=== PATIENT | female | born 2000 | race Two or more races ===

== ENCOUNTER 2022-03-19 14:50 | Outpatient (CLI) | payer OTHER | END 2022-03-19 16:08 | disposition home or self-care (01) | LOC: PRENATAL 14:50 | PROVIDERS: ATTEND Obstetrics & Gynecology Maternal & Fetal Medicine | DX: O35.0XX0 Maternal care for (suspected) central nervous system malformation in fetus, not applicable or unspecified (principal); O35.3XX0 Maternal care for (suspected) damage to fetus from viral disease in mother, not applicable or unspecified; Z3A.22 22 weeks gestation of pregnancy ==

== ENCOUNTER 2022-05-30 10:12 | Outpatient (CLI) | payer OTHER | END 2022-05-30 11:16 | disposition home or self-care (01) | LOC: PRENATAL 10:12 | PROVIDERS: ATTEND Obstetrics & Gynecology Maternal & Fetal Medicine | DX: O26.849 Uterine size-date discrepancy, unspecified trimester (principal); O36.8199 Decreased fetal movements, unspecified trimester, other fetus; O35.0XX0 Maternal care for (suspected) central nervous system malformation in fetus, not applicable or unspecified; Z3A.32 32 weeks gestation of pregnancy ==

== ENCOUNTER 2022-07-09 17:05 | Inpatient (IN) | payer OTHER ==
[~2022-07-09] VITALS: Ht 154.9 cm; Wt 83.9 kg
[2022-07-09] MEDS ORDERED: PRENATAL TABLE1 EAC3 PO (17:57)
[2022-07-12] MEDS ORDERED: NAPR500T14 PO (11:05)
== END 2022-07-12 15:35 | disposition home or self-care (01) | DRG 807 ==
LOC: LDR 17:05 → OB/GYN 07-10 20:54
PROVIDERS: ADMIT Student in an Organized Health Care Education/Training Program; ATTEND Student in an Organized Health Care Education/Training Program
PROC: 4A1HXCZ Monitoring of Products of Conception, Cardiac Rate, External Approach (ICD-10-PCS; 2022-07-09)
PROC: 10E0XZZ Delivery of Products of Conception, External Approach (ICD-10-PCS; principal; 2022-07-10)
PROC: 0UQMXZZ Repair Vulva, External Approach (ICD-10-PCS; 2022-07-10)
DX: O70.0 First degree perineal laceration during delivery (principal); Z37.0 Single live birth; Z3A.38 38 weeks gestation of pregnancy; Z20.822 Contact with and (suspected) exposure to COVID-19